=== PATIENT | female | born 1975 | race Caucasian/White ===

== ENCOUNTER 2023-11-10 17:28 | Emergency (ER) | payer SELFPAY ==
[2023-11-10] MEDS ORDERED: CEFAZOLIN 1 GM VIAL ONE (18:33)
[2023-11-10] MEDS ORDERED: Sterile Water 10 ML ONE (18:34)
[2023-11-10] MEDS ORDERED: CEFAZOLIN SLOW IVP SCH (18:45)
[2023-11-10] MEDS ORDERED: STERILE WATER SLOW IVP SCH (18:45)
== END 2023-11-10 19:40 | disposition home or self-care (01) ==
LOC: CSHERS 17:28
DX: S62.306A Unspecified fracture of fifth metacarpal bone, right hand, initial encounter for closed fracture (principal); I10 Essential (primary) hypertension; W23.1XXA Caught, crushed, jammed, or pinched between stationary objects, initial encounter
CPT/HCPCS: 29125; 96372; 99283; J0690